=== PATIENT | female | born 1960 | race Caucasian/White ===

== ENCOUNTER → 2024-04-01 | Outpatient (CLI) | payer MEDICARE, MEDICAID ==
[~2024-04-01] MED LIST: ASPIRIN 81M81 MG/TA2 PO; B-121000 MCG PO; BETIMOL 0.5% OPH5 ML OU; CALCIUM 600MG+D1 TAB PO; COMBIGAN 0.2%-0.5 ML OU; COMPLETE MULTI1 TAB PO; COZAAR 25MG25 MG/TAB PO; FISH OIL 500 M1 EAC1 PO; FORT1000TA PO; LEVAQUIN 750MG750 M1 PO; LIPITOR 10MG10 MG PO; LOPRESSOR100 MG PO; MOBIC15 MG PO; NEURONTIN100 MG/CAP PO; NEURONTIN300 MG/CAP PO; NORCO 325 MG-51 TAB PO; NORVASC 5MG5 MG/TAB PO; PRISTIQ100 MG PO; TRIAMCINOLONE A15 G3 TP; TRIAMCINOLONE AC0.13 TOP; TYLENOL 8 HR PO; VITAMIN D31000 I1 PO; ZTLIDO1 EACH TP
== END ==
LOC: COL.RAD 10:30
DX: N20.1 Calculus of ureter (principal); E21.2 Other hyperparathyroidism
CPT/HCPCS: A9500-JZ

== ENCOUNTER → 2024-06-18 | Outpatient (CLI) | payer MEDICARE, MEDICAID | LOC: MHCPAIN 08:46 | DX: M48.061 Spinal stenosis, lumbar region without neurogenic claudication (principal); M54.16 Radiculopathy, lumbar region; I10 Essential (primary) hypertension; E11.9 Type 2 diabetes mellitus without complications; Z79.84 Long term (current) use of oral hypoglycemic drugs | CPT/HCPCS: G0463 ==

== ENCOUNTER → 2024-07-10 | Outpatient (CLI) | payer MEDICARE, MEDICAID ==
[~2024-07-10] MED LIST changes: +Iohexol 300 - 10 ML VIAL ONE; +Lidocaine PF 2% (20 MG/ML) 2 ML VIAL ONE
== END ==
LOC: MHCPAIN 11:04
DX: M54.17 Radiculopathy, lumbosacral region (principal); M54.50 Low back pain, unspecified; M47.816 Spondylosis without myelopathy or radiculopathy, lumbar region
CPT/HCPCS: J1100; Q9967

== ENCOUNTER 2024-08-07 19:50 | Emergency (ER) | payer MEDICARE, MEDICAID ==
[~2024-08-07] VITALS: Ht 170.2 cm; Wt 113.6 kg
[~2024-08-07 19:50] MED LIST changes: -Iohexol 300 - 10 ML VIAL ONE; -Lidocaine PF 2% (20 MG/ML) 2 ML VIAL ONE
[2024-08-07 20:13] VITALS: TEMP 97.7
[2024-08-07] MEDS ORDERED: Ketorolac 15 MG/ML VIAL IV ONE (21:15)
[2024-08-07] MEDS ORDERED: NS 1,000 ML IV ONE (21:15)
[2024-08-07 22:04] LABS: HEMATOCRIT 45.1 % (37.0-47.0); HEMOGLOBIN 14.1 g/dl (12.5-16.0); MEAN CELL VOLUME 89 fl (80.0-100.0); MEAN CORPUSCULAR HEMOGLOBIN 28 pg (27-31); MEAN CORPUSCULAR HGB CONC 31 g/dl (33.0-37.0); MEAN PLATELET VOLUME 9.9 fl (7.4-10.4); PLATELET COUNT 455 K/mm3 (130-400); RED BLOOD COUNT 5.09 M/mm3 (4.10-5.30); REDCELL DISTRIBUTION WIDTH-CV 14.5 % (11.5-14.5)
[2024-08-07 22:15] LABS: ALBUMIN 2.9 g/dL (3.4-4.8); BILIRUBIN,TOTAL 0.3 mg/dL (0.2-1.2); CREATININE, serum 1.76 mg/dL (0.57-1.11); POTASSIUM 3.5 mEq/L (3.5-4.5); TOTAL PROTEIN 7.7 g/dl (6.2-8.1)
[2024-08-07 22:34] LABS: BAND 5 % (0-10); EOSINOPHIL 3 % (0-4); LYMPHOCYTE 15 % (20.0-51.0); METAMYELOCYTE 2 % (0-0); NEUTROPHILS 71 % (42.0-75.2); PLATELET ESTIMATE INCREASED (NORMAL)
[2024-08-07 22:34] LABS: URINE APPEARANCE CLEAR (CLEAR/HAZY); URINE BLOOD NEGATIVE (NEGATIVE); URINE COLOR YELLOW (YELLOW); URINE GLUCOSE NEGATIVE (NEGATIVE); URINE KETONE TRACE (NEGATIVE); URINE NITRATE NEGATIVE (NEGATIVE); URINE PROTEIN(semi-quant) 1+ (NEGATIVE); URINE UROBILINOGEN 0.2 E.U/dL (0.2-1.0)
[2024-08-07 22:43] LABS: COLLECTION METHOD CLEAN CATCH
[2024-08-07] MEDS ORDERED: NS 1,000 ML IV SCH (23:15)
[2024-08-07] MEDS ORDERED: Acetaminophen 325 MG TAB PO PRN (23:15)
[2024-08-07] MEDS ORDERED: Potassium Bicarbonate/Citrate 20 MEQ Effervescent TAB PO SCH (23:15)
[2024-08-07] MEDS ORDERED: Tetanus,Diphther Toxoid Adult 0.5 ML SYRINGE IM ONE (23:15)
[2024-08-07] MEDS ORDERED: HYDROmorphone 0.5 MG/0.5 ML SYRINGE IV PRN (23:15)
[2024-08-07] MEDS ORDERED: *Potassium Replacement Protocol MC SCH (23:15)
[2024-08-07] MEDS ORDERED: RYBELSUS3 MG PO (23:30)
[2024-08-07] MEDS ORDERED: Dextrose (Glucose) 15 GM (4 x 3.75 GM) Chewable TABLET PACK PO PRN (23:30)
[2024-08-07] MEDS ORDERED: Dextrose 50% Water 25 GM/50 ML SYRINGE IV PRN (23:30)
[2024-08-07] MEDS ORDERED: Glucagon 1 MG VIAL IM PRN (23:30)
[2024-08-07] MEDS ORDERED: LEVAQUIN 5500 MG/TA1 PO (23:30)
[2024-08-07] MEDS ORDERED: LASIX 20MG TABL20 MG PO (23:30)
[2024-08-07] MEDS ORDERED: NEURONTIN100 MG/CAP PO ×2 (23:35→23:36)
[2024-08-07] MEDS ORDERED: Gabapentin 400 MG CAP PO SCH (23:36)
[2024-08-07] MEDS ORDERED: BONIVA150 MG PO (23:39)
[2024-08-08 02:10] VITALS: BP 129/82; PULSE 80
[2024-08-08] MEDS ORDERED: Insulin Lispro (HumaLOG) SQ SCH (08:00)
[2024-08-08] MEDS ORDERED: Metoprolol Tartrate 50 MG TAB PO SCH (09:00)
[2024-08-08] MEDS ORDERED: Gabapentin 100 MG CAP PO SCH ×2 (09:00→14:00)
[2024-08-08] MEDS ORDERED: Cyanocobalamin (Vit B-12) 1,000 MCG TAB PO SCH (09:00)
[2024-08-08] MEDS ORDERED: Timolol 0.5% Ophth Soln 5 ML BOTTLE OP SCH (09:00)
[2024-08-08] MEDS ORDERED: Brimonidine 0.2% Ophth Soln 5 ML BOTTLE OP SCH (09:00)
[2024-08-08] MEDS ORDERED: Atorvastatin 10 MG TAB PO SCH (09:00)
== END 2024-08-08 02:10 | disposition short-term general hospital (02) ==
LOC: COL.ER 19:50 → MEDICAL 22:50
PROVIDERS: Emergency Medicine
DX: L03.115 Cellulitis of right lower limb (principal); I73.9 Peripheral vascular disease, unspecified; Z87.442 Personal history of urinary calculi; Z91.040 Latex allergy status
CPT/HCPCS: J1885; J2543; J3370; J7030; J7040